=== PATIENT | male | born 1945 ===

== ENCOUNTER 2018-09-05 06:55 | Outpatient (CLI) | payer OTHER | END 2018-09-05 07:14 | disposition home or self-care (01) | LOC: LAB 06:55 | DX: M81.0 Age-related osteoporosis without current pathological fracture (principal); F51.01 Primary insomnia; D51.3 Other dietary vitamin B12 deficiency anemia; D51.1 Vitamin B12 deficiency anemia due to selective vitamin B12 malabsorption with proteinuria ==